=== PATIENT | female | born 1990 | race Caucasian/White ===

== ENCOUNTER 2020-08-20 15:32 | Inpatient (IN) ==
[2020-08-20 16:39] LABS: Basophils % 0.2 % (0.0-0.8); Eosinophils # 0.1 10*3/uL (0.0-0.87); Eosinophils % 0.5 % (0.00-10.9); Hemoglobin 13.8 GM/DL (12.0-16.0); Immature Granulocytes % 0.7 %; Immature Granulocytes Absolute 0.09 #; Lymphocytes % 7.8 % (21.3-54.2); Mean Corpuscular HGB Conc 32.9 GM/DL (32-36); Mean Corpuscular Volume 85.9 FL (87-102); Monocytes % 2.5 % (1.7-12.7); Neutrophils % 88.3 % (38.7-73.9); Platelet Count 197 T/CUMM (130-400); Red Blood Count 4.89 MC/CUMM (3.8-5.5); Red Cell Distribution Width 12.8 % (9.3-17.3)
[2020-08-20 17:01] LABS: Bacteria,Urine Occasional /HPF (Few); Bilirubin,Urine Negative (Negative); Blood, Urine Negative (Negative); Glucose,Urine (UA) Negative (Negative); Ketones,Urine 80 mg/dL (Negative); Mucus,Urine Few /LPF (Occasional); Nitrite,Urine Negative (Negative); Protein,Urine 30 MG/DL; RBC,Urine <1 /HPF (0-4); Squamous Epithelial Cell,Urine Occasional /HPF (0-10); Urine Appearance CLEAR (Clear); Urine Color Yellow (Yellow); Urine Specific Gravity 1.026 (1.001-1.035); Urine Urobilinogen < 2.0 EU/DL (0.2-1.0); WBC,Urine 2 /HPF (0-6)
[2020-08-20 17:11] LABS: Alanine Aminotransferase 37 U/L (13-56); Albumin 4.1 G/DL (3.4-5.0); Alkaline Phosphatase 87 U/L (45-117); Aspartate Amino Transferase 24 U/L (0-37); Blood Urea Nitrogen 12 MG/DL (7-18); Calcium 9.2 MG/DL (8.5-10.1); Carbon Dioxide 20 MMOL/L (21-32); Estimated Glom Filtration Rate 96 ML/MIN; Glucose 162 MG/DL (74-106); Osmolality,Calculated 276.8 MOS/KG (273-304); Potassium 3.6 MMOL/L (3.5-5.1); Sodium 137 MMOL/L (136-145); Total Protein 7.7 G/DL (5.0-7.5)
[2020-08-20 17:11] LABS: Barbiturates Screen,Urine Negative (Negative); Benzodiazepines Screen,Urine Negative (Negative); Cannabinoid Screen,Urine Negative (Negative); Opiate Screen,Urine Negative (Negative); Phencyclidine Screen,Urine Negative (Negative)
[2020-08-20] MEDS ORDERED: LEVOFLOXACIN INJ 500 MG in PREMIX 1 EACH IV STA (17:12)
[2020-08-20] MEDS ORDERED: PIPERACILLIN/TAZOBACTAM 3,375 MG in SODIUM CHLORIDE 0.9% 100 ML IV STA (17:12)
[2020-08-20] MEDS ORDERED: SODIUM CHLORIDE 0.9% 2,000 ML IV STA (17:13)
[2020-08-20] MEDS ORDERED: ONDANSETRON 4 MG/2 ML VIAL ONE (17:35)
[2020-08-20] MEDS ORDERED: ONDANSETRON 4 MG/2 ML VIAL IV STA (18:00)
[2020-08-20] MEDS ORDERED: ONDANSETRON 4 MG/2 ML VIAL IV PRN (19:42)
[2020-08-20] MEDS ORDERED: VANCOMYCIN INJ 1,000 MG in SODIUM CHLORIDE 0.9% 250 ML IV STA (19:57)
[2020-08-20] MEDS ORDERED: SUMAtriptan 6 MG/0.5 ML VIAL SUBCUT ONE (19:59)
[2020-08-20] MEDS ORDERED: KETOROLAC 30 MG/1 ML VIAL IV PRN (20:00)
[2020-08-20] MEDS ORDERED: MECLIZINE 25 MG TABLET PO PRN (20:04)
[2020-08-20 20:25] LABS: INR 1.1; PT Patient Result 11.3 SECS (9.8-11.9)
[2020-08-20] MEDS ORDERED: METOPROLOL TARTRATE 5 MG/5 ML VIAL IV ONE (20:27)
[2020-08-20] MEDS ORDERED: SODIUM CHLORIDE 0.9% 1,000 ML IV ONE (20:34)
[2020-08-20] MEDS ORDERED: SODIUM CHLORIDE 0.9% 250 ML IV ONE (20:36)
[2020-08-20 21:45] LABS: Glucose,CSF 79 MG/DL (40-70)
[2020-08-20 21:52] LABS: VBG Base Excess -3.8 MEQ/L (0-4); VBG HCO3 20.8 MEQ/L (24-28); VBG PH 7.316; VBG PO2 45.6 MMHG (17-40); VBG Total CO2 19.8 MMOL/L
[2020-08-20] MEDS: SODIUM CHLORIDE 0.9% 1,000 ML IV SCH (22:00)
[2020-08-20 22:08] LABS: Appearance,CSF Hazy
[2020-08-20 22:09] LABS: Red Blood Cell,CSF 3610 C/CUMM; White Blood Cell,CSF 30 C/CUMM
[2020-08-20 22:16] LABS: Albumin 3.7 G/DL (3.4-5.0); Bilirubin,Total 1.5 MG/DL (0.2-1.0); Calcium 8.5 MG/DL (8.5-10.1); Osmolality,Calculated 275.7 MOS/KG (273-304); Potassium 4.9 MMOL/L (3.5-5.1); Total Protein 7.3 G/DL (5.0-7.5)
[2020-08-20 23:03] LABS: Lymphocytes,CSF 26 %; Monocytes,CSF 5 %; Neutrophils,CSF 69 %
[2020-08-20] MEDS ORDERED: DILTIAZEM 100 MG VIAL.ADD IV STA (23:56)
[2020-08-21] MEDS ORDERED: DILTIAZEM 25 MG/5 ML VIAL IV STA
[2020-08-21] MEDS ORDERED: DILTIAZEM 25 MG/5 ML VIAL IV ONE
[2020-08-21] MEDS ORDERED: cefTRIAXone 2,000 MG in SYRINGE 1 EACH IV STA (00:56)
[2020-08-21] MEDS: ENOXAPARIN 40 MG/0.4 ML SYRINGE SUBCUT SCH ×2 (01:10→20:42)
[2020-08-21 01:40] LABS: ABG Base Excess -2.7 MMOL/L (-2.5-2.5); ABG Oxygen Saturation 90.6 % (95-100); ABG PCO2 39.1 MM HG (35-48); ABG PH 7.366 (7.35-7.45); ABG PO2 61.8 MM HG (80-95); ABG TCO2 19.7 MMOL/L (23-27)
[2020-08-21 03:39] LABS: Basophils % 0.1 % (0.0-0.8); Eosinophils % 0.1 % (0.00-10.9); Hematocrit 39.8 VOL% (35.7-47.0); Immature Granulocytes % 0.5 %; Immature Granulocytes Absolute 0.08 #; Lymphocytes # 0.9 10*3/uL (1.4-4.0); Lymphocytes % 5.7 % (21.3-54.2); Mean Corpuscular HGB Conc 32.7 GM/DL (32-36); Mean Corpuscular Volume 85.2 FL (87-102); Monocytes % 2.2 % (1.7-12.7); Neutrophils % 91.4 % (38.7-73.9); Platelet Count 256 T/CUMM (130-400); Red Blood Count 4.67 MC/CUMM (3.8-5.5); Red Cell Distribution Width 13.1 % (9.3-17.3); White Blood Count 16.2 T/CUMM (4-12)
[2020-08-21 03:54] LABS: Albumin 3.3 G/DL (3.4-5.0); Bilirubin,Total 0.4 MG/DL (0.2-1.0); Calcium 8.5 MG/DL (8.5-10.1); Osmolality,Calculated 273.7 MOS/KG (273-304); Potassium 4.2 MMOL/L (3.5-5.1); Risk Ratio 4.14; Total Protein 7.1 G/DL (5.0-7.5); VLDL CHOLESTEROL 12.6 MG/DL
[2020-08-21 04:01] LABS: Eosinophils 1 % (0-10); Lymphocytes 6 % (20-55); Platelet Estimate Adequate; Segmented Neutrophils 91 % (50-85); Total Cells Counted 100
[2020-08-21] MEDS: PANTOPRAZOLE 40 MG VIAL IV SCH (06:20)
[2020-08-21] MEDS ORDERED: DILTIAZEM 50 MG/10 ML VIAL IV STA (07:46)
[2020-08-21] MEDS ORDERED: DILTIAZEM INJ 100 MG in SODIUM CHLORIDE 0.9% 100 ML IV SCH (08:00)
[2020-08-21] MEDS: SODIUM CHLORIDE 0.9% 1,000 ML IV SCH ×2 (09:45→17:21)
[2020-08-21] MEDS ORDERED: BICILLIN CR 1,200,000 UNIT/2 ML SYRINGE IM STA (10:25)
[2020-08-21] MEDS ORDERED: MORPHINE 4 MG/1 ML VIAL IV PRN (10:42)
[2020-08-21] MEDS: AZITHROMYCIN INJ 500 MG in SODIUM CHLORIDE 0.9% 250 ML IV SCH (11:05)
[2020-08-21] MEDS: VANCOMYCIN INJ 2,000 MG in SODIUM CHLORIDE 0.9% 500 ML IV SCH ×2 (11:25→23:26)
[2020-08-21] MEDS ORDERED: cefTRIAXone 1,000 MG VIAL IM SCH (13:00)
[2020-08-21] MEDS ORDERED: LORazepam 1 MG TABLET PO PRN (13:33)
[2020-08-21] MEDS: METOPROLOL TARTRATE 5 MG/5 ML VIAL IV SCH (15:11)
[2020-08-21] MEDS: cefTRIAXone 2,000 MG in SYRINGE 1 EACH IV SCH (15:18)
[2020-08-21 17:05] LABS: Troponin I 0.819 NG/ML (0.00-0.045)
[2020-08-21] MEDS: DILTIAZEM INJ 100 MG in SODIUM CHLORIDE 0.9% 100 ML IV SCH (17:22)
[2020-08-22] MEDS: DILTIAZEM INJ 100 MG in SODIUM CHLORIDE 0.9% 100 ML IV SCH (00:04)
[2020-08-22] MEDS: SODIUM CHLORIDE 0.9% 1,000 ML IV SCH ×4 (02:14→22:55)
[2020-08-22 03:01] LABS: ABG Base Excess 0.1 MMOL/L (-2.5-2.5); ABG HCO3 24.5 MMOL/L (20-26); ABG Oxygen Saturation 97.4 % (95-100); ABG PCO2 35.1 MM HG (35-48); ABG PH 7.439 (7.35-7.45); ABG PO2 89.3 MM HG (80-95); Allen Test Positive
[2020-08-22] MEDS: cefTRIAXone 2,000 MG in SYRINGE 1 EACH IV SCH ×2 (03:54→15:22)
[2020-08-22 06:06] LABS: Basophils # 0.1 10*3/uL (0.0-0.2); Basophils % 0.5 % (0.0-0.8); Eosinophils # 0.1 10*3/uL (0.0-0.87); Eosinophils % 0.8 % (0.00-10.9); Hematocrit 35.3 VOL% (35.7-47.0); Hemoglobin 11.4 GM/DL (12.0-16.0); Immature Granulocytes % 0.3 %; Immature Granulocytes Absolute 0.04 #; Lymphocytes # 2.1 10*3/uL (1.4-4.0); Lymphocytes % 17.9 % (21.3-54.2); Mean Corpuscular HGB Conc 32.3 GM/DL (32-36); Mean Corpuscular Volume 87.4 FL (87-102); Mean Platelet Volume 10.2 FL (9.6-12.0); Monocytes % 5.3 % (1.7-12.7); Neutrophils % 75.2 % (38.7-73.9); Platelet Count 216 T/CUMM (130-400); Red Blood Count 4.04 MC/CUMM (3.8-5.5); Red Cell Distribution Width 13.6 % (9.3-17.3); White Blood Count 11.9 T/CUMM (4-12)
[2020-08-22] MEDS: PANTOPRAZOLE 40 MG VIAL IV SCH (06:09)
[2020-08-22 06:30] LABS: Albumin 2.8 G/DL (3.4-5.0); Bilirubin,Total 0.8 MG/DL (0.2-1.0); Calcium 8.1 MG/DL (8.5-10.1); Potassium 3.5 MMOL/L (3.5-5.1); Total Protein 6.1 G/DL (5.0-7.5)
[2020-08-22 06:42] LABS: Troponin I 0.627 NG/ML (0.00-0.045)
[2020-08-22] MEDS ORDERED: POTASSIUM CHLORIDE 20 MEQ TABLET PO ONE (09:11)
[2020-08-22] MEDS: AZITHROMYCIN INJ 500 MG in SODIUM CHLORIDE 0.9% 250 ML IV SCH (09:33)
[2020-08-22] MEDS ORDERED: MAGNESIUM SULF RIDER 4 GM in PREMIX 1 EACH IV PRN (10:47)
[2020-08-22] MEDS ORDERED: MAGNESIUM SULF RIDER 2 GM in PREMIX 1 EACH IV PRN (10:47)
[2020-08-22] MEDS: VANCOMYCIN INJ 2,000 MG in SODIUM CHLORIDE 0.9% 500 ML IV SCH ×2 (11:32→22:55)
[2020-08-22] MEDS: ASCORBIC ACID 500 MG TABLET PO SCH ×2 (11:46→21:26)
[2020-08-22] MEDS: APIXABAN 2.5 MG TABLET PO SCH ×2 (15:23→21:26)
[2020-08-22] MEDS: METOPROLOL SUCCINATE XL 50 MG TABLET PO SCH (15:23)
[2020-08-22 15:56] LABS: CSF Crypto neoforman/gatti PCR Negative (Negative); CSF Cytomegalovirus PCR Negative (Negative); CSF Enterovirus PCR Negative (Negative); CSF Escherichia coli K1 PCR Negative (Negative); CSF Haemophilus influenzae PCR Negative (Negative); CSF Herpes Simplex Virus 1 PCR Negative (Negative); CSF Herpes Simplex Virus 2 PCR Negative (Negative); CSF Human Herpes Virus 6 PCR Negative (Negative); CSF Human Parechovirus PCR Negative (Negative); CSF Listeria monocytogenes PCR Negative (Negative); CSF Neisseria meningitidis PCR Negative (Negative); CSF Streptococcus agalacti PCR Negative (Negative); CSF Streptococcus pneumon PCR Negative (Negative); CSF Varicella Zoster Virus PCR Negative (Negative); Specimen source CEREBROSPINAL FLUID
[2020-08-23] MEDS: cefTRIAXone 2,000 MG in SYRINGE 1 EACH IV SCH (02:07)
[2020-08-23] MEDS: SODIUM CHLORIDE 0.9% 1,000 ML IV SCH (04:20)
[2020-08-23 05:39] LABS: Basophils % 0.4 % (0.0-0.8); Eosinophils # 0.6 10*3/uL (0.0-0.87); Eosinophils % 8.5 % (0.00-10.9); Hematocrit 32.3 VOL% (35.7-47.0); Hemoglobin 10.9 GM/DL (12.0-16.0); Immature Granulocytes % 0.3 %; Immature Granulocytes Absolute 0.02 #; Lymphocytes # 1.7 10*3/uL (1.4-4.0); Lymphocytes % 25.4 % (21.3-54.2); Mean Corpuscular HGB Conc 33.7 GM/DL (32-36); Mean Corpuscular Volume 86.6 FL (87-102); Mean Platelet Volume 10.4 FL (9.6-12.0); Neutrophils % 59.4 % (38.7-73.9); Platelet Count 167 T/CUMM (130-400); Red Blood Count 3.73 MC/CUMM (3.8-5.5); Red Cell Distribution Width 13.4 % (9.3-17.3); White Blood Count 6.8 T/CUMM (4-12)
[2020-08-23 06:08] LABS: Calcium 8.1 MG/DL (8.5-10.1); Osmolality,Calculated 280.1 MOS/KG (273-304); Potassium 3.8 MMOL/L (3.5-5.1)
[2020-08-23] MEDS: PANTOPRAZOLE 40 MG TABLET PO SCH (06:15)
[2020-08-23] MEDS: APIXABAN 2.5 MG TABLET PO SCH ×2 (09:26→20:51)
[2020-08-23] MEDS: ASCORBIC ACID 500 MG TABLET PO SCH ×2 (09:26→20:51)
[2020-08-23] MEDS: METOPROLOL SUCCINATE XL 50 MG TABLET PO SCH (09:26)
[2020-08-23] MEDS: FERROUS SULFATE 325 MG TABLET PO SCH (09:27)
[2020-08-23] MEDS: AZITHROMYCIN INJ 500 MG in SODIUM CHLORIDE 0.9% 250 ML IV SCH (09:32)
[2020-08-23 09:49] LABS: IgG Index, CSF 1.86 (<=0.85); IgG, CSF 12.8 mg/dL (<=8.1); IgG/Albumin Ratio, CSF 0.54 (<=0.21); Synthesis Rate, CSF 47.26 mg/24 h (<=12)
[2020-08-23] MEDS ORDERED: ACETAMINOPHEN 325 MG TABLET PO PRN (11:56)
[2020-08-23] MEDS ORDERED: BUTALBITAL/ACETAMIN/CAFFEINE 50-325-40 MG TABLET PO PRN (11:57)
[2020-08-24 04:12] LABS: Basophils % 0.6 % (0.0-0.8); Eosinophils # 0.8 10*3/uL (0.0-0.87); Eosinophils % 11.1 % (0.00-10.9); Hematocrit 32.5 VOL% (35.7-47.0); Hemoglobin 11.2 GM/DL (12.0-16.0); Immature Granulocytes % 0.1 %; Immature Granulocytes Absolute 0.01 #; Lymphocytes # 2.1 10*3/uL (1.4-4.0); Lymphocytes % 28.8 % (21.3-54.2); Mean Corpuscular HGB Conc 34.5 GM/DL (32-36); Mean Corpuscular Volume 84.4 FL (87-102); Mean Platelet Volume 10.2 FL (9.6-12.0); Monocytes % 5.9 % (1.7-12.7); Neutrophils % 53.5 % (38.7-73.9); Platelet Count 179 T/CUMM (130-400); Red Blood Count 3.85 MC/CUMM (3.8-5.5); White Blood Count 7.2 T/CUMM (4-12)
[2020-08-24 04:40] LABS: Calcium 8.4 MG/DL (8.5-10.1); Osmolality,Calculated 278.4 MOS/KG (273-304); Potassium 3.9 MMOL/L (3.5-5.1)
[2020-08-24 05:42] LABS: Atypical Lymphocytes Few; Eosinophils 13 % (0-10); Hypochromasia 1+; Lymphocytes 34 % (20-55); Microcytosis 1+; Segmented Neutrophils 51 % (50-85); Total Cells Counted 100
[2020-08-24 05:43] LABS: Platelet Estimate Adequate
[2020-08-24] MEDS: PANTOPRAZOLE 40 MG TABLET PO SCH (06:05)
[2020-08-24 08:21] LABS: IgG/Albumin Ratio, CSF 0.58 (<=0.21)
[2020-08-24] MEDS ORDERED: cefTRIAXone 1,000 MG in SYRINGE 1 EACH IV SCH (09:00)
[2020-08-24] MEDS: ASCORBIC ACID 500 MG TABLET PO SCH (09:33)
[2020-08-24] MEDS: FERROUS SULFATE 325 MG TABLET PO SCH (09:33)
[2020-08-24] MEDS: APIXABAN 2.5 MG TABLET PO SCH (09:33)
[2020-08-24] MEDS: METOPROLOL SUCCINATE XL 50 MG TABLET PO SCH (09:33)
[2020-08-24] MEDS: AZITHROMYCIN INJ 500 MG in SODIUM CHLORIDE 0.9% 250 ML IV SCH (09:43)
[2020-08-24 11:45] VITALS: BP 122/79
[2020-08-24] MEDS ORDERED: METRONIDAZOLE 0.75% VAG CREAM 70 GM TUBE VAG SCH (13:00)
== END 2020-08-24 14:25 | disposition home or self-care (01) | DRG 871 ==
LOC: N.ED 15:32 → SUATTDRO 19:41 → N.EDINP 19:41 → N.TELEN 08-21 14:55
PROVIDERS: ADMIT Internal Medicine; ATTEND Internal Medicine